=== PATIENT | male | born 1940 | race Caucasian/White ===

== ENCOUNTER 2017-03-13 16:41 | Outpatient (CLI) | payer OTHER ==
[2013-12-11 17:54] VITALS: BP 163/102
== END 2017-03-13 16:42 ==
LOC: LABRHC 16:41
PROVIDERS: ATTEND Family Medicine
DX: L57.0 Actinic keratosis (principal)

== ENCOUNTER 2019-07-06 15:00 | Outpatient (CLI) | payer OTHER ==
[2017-11-01 22:51] VITALS: BP 122/75
--- NOTE | 2019-07-07 09:55 | Diagnostic Imaging Report ---
[facility] [address] [facility] [address] [place], [place]. [address] Report Submission Date: Jul 06, 2019 6:29:55 PM CDT Patient Study Name: CRISTIAN ALBERTO Date: Jul 06, 2019 3:44:56 PM CDT Modality Type: CT\SR Gender: M Description: CT ABD PELVIS W/ CON : 36 Institution: [facility] Physician: ALEYDA CT abdomen and pelvis with intravenous contrast HISTORY Bowel obstruction, abdominal pain TECHNIQUE Images through the abdomen and pelvis were obtained following intravenous contrast administration. FINDINGS The lung bases, liver, gallbladder, spleen, pancreas, kidneys and adrenal glands are normal. There is no hydronephrosis, hydroureter, free intraperitoneal air or fluid. There is no bowel obstruction or inflammatory change. Moderate amount of retained fecal material is noted throughout the colon. Large mass is noted at the base of the bladder, likely arising from the prostate. There is calcification in the abdominal aorta and its branches. IMPRESSION Constipation. Large bladder mass, likely arising from the prostate. Malignancy is not excluded and further evaluation is recommended. Atherosclerosis. Electronically signed on Jul 06, 2019 6:29:55 PM CDT by: Jhonathan NYE
== END 2019-07-06 15:03 ==
LOC: RAD 15:00
PROVIDERS: ATTEND Family Medicine
DX: K56.609 Unspecified intestinal obstruction, unspecified as to partial versus complete obstruction (principal); R10.9 Unspecified abdominal pain
CPT/HCPCS: 74177; Q9967